=== PATIENT | male | born 1995 | race Two or more races ===

== ENCOUNTER 2016-12-17 23:46 | Emergency (ER) | payer OTHER ==
[2016-12-17] MEDS ORDERED: ACETAMINOPHEN 500 MG TAB PO ONE (23:55)
[2016-12-17] MEDS ORDERED: IBUPROFEN 600 MG TAB PO ONE (23:56)
--- NOTE | 2016-12-18 | CPEKG ---
Heart Rate: 156 RR Interval: 385 P-R Interval: 180 QRSD Interval: 80 QT Interval: 232 QTC Interval: 374 P [place]: 69 QRS [place]: 41 T Wave [place]: -83 EKG Severity - ABNORMAL ECG - EKG Impression: SINUS TACHYCARDIA EKG Impression: PROBABLE LEFT ATRIAL ABNORMALITY EKG Impression: REPOL ABNRM SUGGESTS ISCHEMIA, DIFFUSE LEADS Electronically Signed By: Alec Vera 18-Dec-2016 02:23:29
[2016-12-18] MEDS ORDERED: NS 1,000 ML IV ONE ×2 (00:02→01:04)
[2016-12-18 00:51] VITALS: RESP 16
[2016-12-18 01:00] LABS: COLOR YELLOW; LEUKOCYTE ESTERASE,URINE NEGATIVE (NEGATIVE); NITRITE,URINE NEGATIVE (NEGATIVE)
[2016-12-18 01:01] LABS: % IMMATURE GRANULYOCYTES 0.6 % (0.0-1.1); ABSOLUTE IMMATURE GRANULOCYTES 0.05 10^3/uL (0.00-0.10); ADD DIFF? NO; ADD MORPH? NO; ADD SCAN? NO; ANION GAP 13 mEq/L (8-16); ATYPICAL LYMPHOCYTE FLAG 10 (0-99); CALCIUM 10.1 mg/dL (8.5-10.4); CARBON DIOXIDE 24 mEq/l (22-31); CHLORIDE 103 mEq/L (97-110); CREATININE 1.1 mg/dL (0.7-1.3); FRAGMENT RBC FLAG 0 (0-99); GLOMERULAR FILTRATION RATE > 60; GLUCOSE 101 mg/dL (70-100); HEMATOCRIT 46.3 % (40.0-51.0); HEMOGLOBIN 15.6 g/dL (13.7-17.5); LEFT SHIFT FLG 10 (0-99); LIPEMIA HEMOLYSIS FLAG 80 (0-99); MEAN CELL HEMOGLOBIN 29.1 pg (27.9-34.1); MEAN CELL HEMOGLOBIN CONCENTR. 33.7 g/dL (32.4-36.7); MEAN CELL VOLUME 86.4 fL (81.5-99.8); MEAN PLATELET VOLUME 10.1 fL (8.7-11.7); PLATELET CLUMPS FLAG 0 (0-99); PLATELET COUNT 294 10^3/uL (150-400); RED BLOOD CELL COUNT 5.36 10^6/uL (4.40-6.38); SODIUM 140 mEq/L (134-144)
--- NOTE | 2016-12-18 01:58 | EDPHY ---
H & P Stated Complaint: tachy fever bilat flank pain Time Seen by Provider: 12/18/16 00:12 HPI/ROS: Chief complaint: Chills, myalgias HPI: 21-year-old male presenting with chills and back ache which began earlier this evening. Patient states that he has normal state of health today. Decided to go to the gym with his friend. There he did do some boxing with a punching bag. He was not sparring and did not get hit. Went home started developing some bilateral back aching. Then developed chills. Continue the chills through the course of the evening and feeling generally unwell. He does live in the dorms on campus. Does not have a headache. No nausea or vomiting or diarrhea. No cough. No abdominal pain. Did have a little bit of burning with urination when he urinated earlier. Has a history of toe was kidneys in the past was worked up extensively in [place] for proteinuria. He has since been followed by a learning coach in [place] and has had normal urine since. ROS: 10 point Review of Systems is negative except as noted in the HPI. Past medical history: Proteinuria Medications: None Allergies: Amoxicillin Physical exam: Vital signs: Heart rate 150, blood pressure is 138/73, respiratory rate is 18, oxygen saturations 93% on room air, temperature is 39 Gen: Awake, Alert, No Distress HEENT: Nose: no rhinorrhea Eyes: PERRLA, EOMI Mouth: Moist mucosa Neck: Supple, no JVD Chest: nontender, lungs clear to auscultation Heart: Tachycardic, S1, S2 normal, no murmur Abd: Soft, non-tender, no guarding Back: no CVA tenderness, no midline tenderness Ext: no edema, non-tender Skin: no rash Neuro: CN II-XII intact, Sensation grossly intact, Strength 5/5 in bilateral upper and lower extremities - Personal History Current Tetanus/Diphtheria Vaccine: Yes Current Tetanus Diphtheria and Acellular Pertussis (TDAP): Yes - Medical/Surgical History Hx Asthma: No Hx Chronic Respiratory Disease: No Hx Diabetes: No Hx Cardiac Disease: No Hx Renal Disease: No Hx Cirrhosis: No Hx Alcoholism: No Hx HIV/AIDS: No Hx Splenectomy or Spleen Trauma: No - Social History Smoking Status: Never smoked Constitutional: Initial Vital Signs Temperature (C) 39 C H 12/18/16 00:05 Heart Rate 150 H 12/18/16 00:05 Respiratory Rate 18 12/18/16 00:05 Blood Pressure 138/73 H 12/18/16 00:05 O2 Sat (%) 93 12/18/16 00:05 O2 Delivery Mode Room Air O2 (L/minute) 2 Allergies/Adverse Reactions: amoxicillin Allergy (Verified 12/18/16 00:03) Home Medications: Medication Instructions Recorded NK [No Known Home Meds] 12/18/16 Medical Decision Making - Diagnostics EKG Interpretation: Sinus tachycardia with a rate of 156, normal axis, normal intervals, no acute ST or T-wave changes. ED Course/Re-evaluation: 21-year-old with tachycardia and fever here. He has some complaints of flank pain. Will give antipyretics, IV fluids, check his urine and blood work and reassess. Patient's heart rate down to 120 after 1 L of normal saline. He is also defervescing after Tylenol and ibuprofen. Urine is clear. CBC and chemistry are normal. Will give another L fluid and reassess. 0200 patient is feeling improved. Fevers down. Heart rate down is now to 113. He is tolerating p.o.. Symptoms are consistent with acute viral syndrome. Influenza serology is negative. Symptoms consistent with a viral illness. - Data Points Laboratory Results: Laboratory Results 12/18/16 00:10 12/18/16 00:10 12/18/16 12/18/16 12/18/16 00:50 00:10 00:10 WBC RBC Hgb Hct MCV MCH MCHC RDW Plt Count MPV Neut % (Auto) Lymph % (Auto) [place] % (Auto) Eos % (Auto) Baso % (Auto) Nucleat RBC Rel Count Absolute Neuts (auto) Absolute Lymphs (auto) Absolute Monos (auto) Absolute Eos (auto) Absolute Basos (auto) Absolute Nucleated RBC Immature Gran % Immature Gran # Sodium 140 mEq/L mEq/L (134-144) Potassium 4.0 mEq/L mEq/L (3.5-5.2) Chloride 103 mEq/L mEq/L (97-110) Carbon Dioxide 24 mEq/l mEq/l (22-31) Anion Gap 13 mEq/L mEq/L (8-16) BUN 18 mg/dL mg/dL (7-23) Creatinine 1.1 mg/dL mg/dL (0.7-1.3) Estimated GFR > 60 Glucose 101 mg/dL H mg/dL (70-100) Calcium 10.1 mg/dL mg/dL (8.5-10.4) Urine Color YELLOW Urine Appearance CLEAR Urine pH 5.0 (5.0-7.5) Ur Specific [place] 1.014 (1.002-1.030) Urine Protein NEGATIVE (NEGATIVE) Urine Ketones NEGATIVE (NEGATIVE) Urine Blood NEGATIVE (NEGATIVE) Urine Nitrate NEGATIVE (NEGATIVE) Urine Bilirubin NEGATIVE (NEGATIVE) Urine Urobilinogen NEGATIVE EU EU (0.2-1.0) Ur Leukocyte Esterase NEGATIVE (NEGATIVE) Ur Culture Indicated? NOT INDICATED (NI) Urine Glucose NEGATIVE (NEGATIVE) Influenza Typ A,B (DFA) NEGATIVE FOR FLU (NEGATIVE) 12/18/16 00:10 WBC 8.85 10^3/uL 10^3/uL (3.80-9.50) RBC 5.36 10^6/uL 10^6/uL (4.40-6.38) Hgb 15.6 g/dL g/dL (13.7-17.5) Hct 46.3 % % (40.0-51.0) MCV 86.4 fL fL (81.5-99.8) MCH 29.1 pg pg (27.9-34.1) MCHC 33.7 g/dL g/dL (32.4-36.7) RDW 12.0 % % (11.5-15.2) Plt Count 294 10^3/uL 10^3/uL (150-400) MPV 10.1 fL fL (8.7-11.7) Neut % (Auto) 86.7 % H % (39.3-74.2) Lymph % (Auto) 11.4 % L % (15.0-45.0) [place] % (Auto) 0.9 % L % (4.5-13.0) Eos % (Auto) 0.2 % L % (0.6-7.6) Baso % (Auto) 0.2 % L % (0.3-1.7) Nucleat RBC Rel Count 0.0 % % (0.0-0.2) Absolute Neuts (auto) 7.67 10^3/uL H 10^3/uL (1.70-6.50) Absolute Lymphs (auto) 1.01 10^3/uL 10^3/uL (1.00-3.00) Absolute Monos (auto) 0.08 10^3/uL L 10^3/uL (0.30-0.80) Absolute Eos (auto) 0.02 10^3/uL L 10^3/uL (0.03-0.40) Absolute Basos (auto) 0.02 10^3/uL 10^3/uL (0.02-0.10) Absolute Nucleated RBC 0.00 10^3/uL 10^3/uL (0-0.01) Immature Gran % 0.6 % % (0.0-1.1) Immature Gran # 0.05 10^3/uL 10^3/uL (0.00-0.10) Sodium Potassium Chloride Carbon Dioxide Anion Gap BUN Creatinine Estimated GFR Glucose Calcium Urine Color Urine Appearance Urine pH Ur Specific [place] Urine Protein Urine Ketones Urine Blood Urine Nitrate Urine Bilirubin Urine Urobilinogen Ur Leukocyte Esterase Ur Culture Indicated? Urine Glucose Influenza Typ A,B (DFA) Medications Given: Discontinued Medications Acetaminophen (Tylenol) 1,000 mg PO EDNOW ONE Stop: 12/17/16 23:56 Last Admin: 12/17/16 23:59 Dose: 1,000 mg Sodium Chloride (Ns) 1,000 mls @ 0 mls/hr IV ONCE ONE PRN Reason: Wide Open Stop: 12/18/16 00:03 Last Admin: 12/18/16 00:02 Dose: 1,000 mls Sodium Chloride (Ns) 1,000 mls @ 0 mls/hr IV ONCE ONE PRN Reason: Wide Open Stop: 12/18/16 01:05 Last Admin: 12/18/16 01:07 Dose: 1,000 mls Ibuprofen (Motrin) 600 mg PO EDNOW ONE Stop: 12/17/16 23:57 Last Admin: 12/17/16 23:59 Dose: 600 mg Departure - Departure Disposition: Home, Routine, Self-Care Clinical Impression: Viral illness, Fever Condition: Good Instructions: Viral Syndrome (ED), Fever in Adults (ED) Additional Instructions: Alternate Tylenol and ibuprofen every 4 hours for fever, chills, aches, pains. Drink plenty of fluids. Follow up at [facility] in 2-3 days if symptoms are not improving. Referrals: NONE *PRIMARY CARE P,. [Primary Care Provider] - As per Instructions [facility] Pending Sale To [facility] [Outside] - As per Instructions
[2016-12-18 02:24] VITALS: BP 106/56; PULSE 113; TEMP 98.2; O2SAT 95
== END 2016-12-18 02:25 | disposition home or self-care (01) ==
DX: B34.9 Viral infection, unspecified (principal)

== ENCOUNTER 2017-04-15 04:01 | Emergency (ER) | payer OTHER ==
[2017-04-15] MEDS ORDERED: IBUPROFEN 200 MG TAB PO ONE (04:19)
[2017-04-15] MEDS ORDERED: ACETAMINOPHEN 500 MG TAB PO ONE (04:19)
[2017-04-15] MEDS ORDERED: NS 1,000 ML IV ONE (04:19)
[2017-04-15 04:39] LABS: % IMMATURE GRANULYOCYTES 0.4 % (0.0-1.1); ABSOLUTE IMMATURE GRANULOCYTES 0.05 10^3/uL (0.00-0.10); ADD DIFF? NO; ADD MORPH? NO; ADD SCAN? NO; ATYPICAL LYMPHOCYTE FLAG 0 (0-99); FRAGMENT RBC FLAG 0 (0-99); HEMATOCRIT 43.3 % (40.0-51.0); HEMOGLOBIN 14.7 g/dL (13.7-17.5); LEFT SHIFT FLG 0 (0-99); LIPEMIA HEMOLYSIS FLAG 90 (0-99); MEAN CELL HEMOGLOBIN 29.1 pg (27.9-34.1); MEAN CELL HEMOGLOBIN CONCENTR. 33.9 g/dL (32.4-36.7); MEAN CELL VOLUME 85.6 fL (81.5-99.8); PLATELET CLUMPS FLAG 10 (0-99); PLATELET COUNT 227 10^3/uL (150-400); RED BLOOD CELL COUNT 5.06 10^6/uL (4.40-6.38); RED CELL DISTRIBUTION WIDTH 12.5 % (11.5-15.2)
[2017-04-15 04:51] LABS: ALANINE AMINOTRANSFERASE 33 IU/L (21-72); ALBUMIN 4.7 g/dL (3.5-5.0); ALKALINE PHOSPHATASE 81 IU/L (38-126); ANION GAP 13 mEq/L (8-16); ASPARTATE AMINOTRANSFERASE 28 IU/L (17-59); BILIRUBIN,TOTAL 0.9 mg/dL (0.1-1.4); CALCIUM 9.9 mg/dL (8.5-10.4); CARBON DIOXIDE 23 mEq/l (22-31); CHLORIDE 102 mEq/L (97-110); GLOMERULAR FILTRATION RATE > 60; GLUCOSE 93 mg/dL (70-100); POTASSIUM 4.5 mEq/L (3.5-5.2); SODIUM 138 mEq/L (134-144); TOTAL PROTEIN 8.1 g/dL (6.3-8.2)
[2017-04-15 05:36] LABS: COLOR AMBER; LEUKOCYTE ESTERASE,URINE NEGATIVE (NEGATIVE); NITRITE,URINE NEGATIVE (NEGATIVE)
[2017-04-15 05:39] LABS: MUCUS TRACE /lpf (NONE-1+)
--- NOTE | 2017-04-15 05:51 | EDPHY ---
H & P Stated Complaint: pt has had fever x2 days, tylenol@1400, ibuprofen @2000 Time Seen by Provider: 04/15/17 04:17 HPI/ROS: HPI The patient presents with fever which began 2 days ago and is associated with a sore throat. His temperature has been as high as 102. He has been taking Tylenol and ibuprofen for this with minimal improvement in his symptoms. He says he is also having pain of his right flank. His throat soreness is worse when he eats or drinks, he has not had any vomiting or cough. REVIEW OF SYSTEMS Constitutional: Positive for fever Eyes: No discharge. ENT: Positive for sore throat Cardiovascular: No chest pain, no palpitations. Respiratory: No cough, no shortness of breath. Gastrointestinal: No abdominal pain, no vomiting. Genitourinary: No hematuria. Musculoskeletal: No back pain. Skin: No rashes. Neurological: No headache. 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 Soc Hx: College student PHYSICAL General Appearance: Alert, no distress Eyes: Pupils equal and round no pallor or injection ENT, Mouth: Mucous membranes moist, posterior pharynx is erythematous with exudates of left tonsil Respiratory: There are no retractions, lungs are clear to auscultation Cardiovascular: Tachycardic rate with regular rhythm Gastrointestinal: Abdomen is soft and non-tender, no masses, bowel sounds normal Neurological: A&O, moves all extremities Skin: Warm and dry, no rashes Musculoskeletal: Neck is supple non tender Extremities: symmetrical, full range of motion Psychiatric: Patient is oriented X 3, there is no agitation Source: Patient Exam Limitations: No limitations - Personal History Current Tetanus Diphtheria and Acellular Pertussis (TDAP): Yes - Medical/Surgical History Hx Asthma: No Hx Chronic Respiratory Disease: No Hx Diabetes: No Hx Cardiac Disease: No Hx Renal Disease: No Hx Cirrhosis: No Hx Alcoholism: No Hx HIV/AIDS: No Hx Splenectomy or Spleen Trauma: No Other PMH: kidney issues?/ htn? 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 On exam, he is febrile, tachycardic, though generally nontoxic- appearing. His throat is erythematous with exudates. Differential diagnosis includes strep pharyngitis, viral pharyngitis, doubt deep space neck infection such as retropharyngeal abscess given full range of motion of neck. In the emergency room, the patient was given IV fluids, Tylenol, ibuprofen with defervescence of his fever. Labs were checked and did reveal a leukocytosis. UA was negative. Rapid strep was also negative. Given high suspicion for strep based on fever, sore throat, lack of cough, anterior cervical lymphadenopathy, will treat with cephalosporin as the patient has a penicillin allergy. He will be discharged in good condition. - Data Points Laboratory Results: Laboratory Results 04/15/17 04:24 04/15/17 04:24 04/15/17 04/15/17 04/15/17 Unknown 05:05 04:24 WBC RBC Hgb Hct MCV MCH MCHC RDW Plt Count MPV Neut % (Auto) Lymph % (Auto) [place] % (Auto) Eos % (Auto) Baso % (Auto) Nucleat RBC Rel Count Absolute Neuts (auto) Absolute Lymphs (auto) Absolute Monos (auto) Absolute Eos (auto) Absolute Basos (auto) Absolute Nucleated RBC Immature Gran % Immature Gran # Sodium 138 mEq/L mEq/L (134-144) Potassium 4.5 mEq/L mEq/L (3.5-5.2) Chloride 102 mEq/L mEq/L (97-110) Carbon Dioxide 23 mEq/l mEq/l (22-31) Anion Gap 13 mEq/L mEq/L (8-16) BUN 9 mg/dL mg/dL (7-23) Creatinine 1.0 mg/dL mg/dL (0.7-1.3) Estimated GFR > 60 Glucose 93 mg/dL mg/dL (70-100) Calcium 9.9 mg/dL mg/dL (8.5-10.4) Total Bilirubin 0.9 mg/dL mg/dL (0.1-1.4) AST 28 IU/L IU/L (17-59) ALT 33 IU/L IU/L (21-72) Alkaline Phosphatase 81 IU/L IU/L (38-126) Total Protein 8.1 g/dL g/dL (6.3-8.2) Albumin 4.7 g/dL g/dL (3.5-5.0) Urine Color [place] Urine Appearance MODERATELY TURBID Urine pH 8.0 H (5.0-7.5) Ur Specific [place] 1.025 (1.002-1.030) Urine Protein 1+ H (NEGATIVE) Urine Ketones TRACE H (NEGATIVE) Urine Blood NEGATIVE (NEGATIVE) Urine Nitrate NEGATIVE (NEGATIVE) Urine Bilirubin NEGATIVE (NEGATIVE) Urine Urobilinogen 4.0 EU H EU (0.2-1.0) Ur Leukocyte Esterase NEGATIVE (NEGATIVE) Urine RBC 3-5 /hpf H /hpf (0-3) Urine WBC 1-3 /hpf /hpf (0-3) Ur Epithelial Cells TRACE /lpf /lpf (NONE-1+) Urine Mucus TRACE /lpf /lpf (NONE-1+) Urine Glucose NEGATIVE (NEGATIVE) Group A Strep Screen Group A Strep DNA Pending 04/15/17 04/15/17 04:24 04:20 WBC 13.10 10^3/uL H 10^3/uL (3.80-9.50) RBC 5.06 10^6/uL 10^6/uL (4.40-6.38) Hgb 14.7 g/dL g/dL (13.7-17.5) Hct 43.3 % % (40.0-51.0) MCV 85.6 fL fL (81.5-99.8) MCH 29.1 pg pg (27.9-34.1) MCHC 33.9 g/dL g/dL (32.4-36.7) RDW 12.5 % % (11.5-15.2) Plt Count 227 10^3/uL 10^3/uL (150-400) MPV 10.0 fL fL (8.7-11.7) Neut % (Auto) 76.6 % H % (39.3-74.2) Lymph % (Auto) 11.5 % L % (15.0-45.0) [place] % (Auto) 10.9 % % (4.5-13.0) Eos % (Auto) 0.4 % L % (0.6-7.6) Baso % (Auto) 0.2 % L % (0.3-1.7) Nucleat RBC Rel Count 0.0 % % (0.0-0.2) Absolute Neuts (auto) 10.03 10^3/uL H 10^3/uL (1.70-6.50) Absolute Lymphs (auto) 1.51 10^3/uL 10^3/uL (1.00-3.00) Absolute Monos (auto) 1.43 10^3/uL H 10^3/uL (0.30-0.80) Absolute Eos (auto) 0.05 10^3/uL 10^3/uL (0.03-0.40) Absolute Basos (auto) 0.03 10^3/uL 10^3/uL (0.02-0.10) Absolute Nucleated RBC 0.00 10^3/uL 10^3/uL (0-0.01) Immature Gran % 0.4 % % (0.0-1.1) Immature Gran # 0.05 10^3/uL 10^3/uL (0.00-0.10) Sodium Potassium Chloride Carbon Dioxide Anion Gap BUN Creatinine Estimated GFR Glucose Calcium Total Bilirubin AST ALT Alkaline Phosphatase Total Protein Albumin Urine Color Urine Appearance Urine pH Ur Specific [place] Urine Protein Urine Ketones Urine Blood Urine Nitrate Urine Bilirubin Urine Urobilinogen Ur Leukocyte Esterase Urine RBC Urine WBC Ur Epithelial Cells Urine Mucus Urine Glucose Group A Strep Screen NEGATIVE (NEGATIVE) Group A Strep DNA Medications Given: Discontinued Medications Acetaminophen (Tylenol) 1,000 mg PO EDNOW ONE Stop: 04/15/17 04:20 Last Admin: 04/15/17 04:28 Dose: 1,000 mg Sodium Chloride (Ns) 1,000 mls @ 0 mls/hr IV ONCE ONE; Wide Open PRN Reason: Protocol Stop: 04/15/17 04:20 Last Admin: 04/15/17 04:25 Dose: 1,000 mls Ibuprofen (Motrin) 400 mg PO EDNOW ONE Stop: 04/15/17 04:20 Last Admin: 04/15/17 04:28 Dose: 400 mg Departure - Departure Disposition: Home, Routine, Self-Care Clinical Impression: Strep pharyngitis Fever Qualifiers: Fever type: unspecified Qualified Code(s): R50.9 - Fever, unspecified Leukocytosis Qualifiers: Leukocytosis type: unspecified Qualified Code(s): D72.829 - Elevated white blood cell count, unspecified Condition: Good Instructions: Strep Throat (ED) Referrals: [facility] [Other] - As per Instructions Prescriptions: Cefuroxime Axetil [Cefuroxime] 250 mg PO BID #20 tablet
[2017-04-15 06:10] VITALS: BP 129/87; PULSE 98; RESP 16; TEMP 99.5; O2SAT 96
== END 2017-04-15 06:10 | disposition home or self-care (01) ==
DX: J02.0 Streptococcal pharyngitis (principal); D72.829 Elevated white blood cell count, unspecified

== ENCOUNTER 2017-04-15 19:53 | Emergency (ER) | payer OTHER ==
[2017-04-15] MEDS ORDERED: ACETAMINOPHEN 325 MG TAB PO ONE (20:40)
[2017-04-15] MEDS ORDERED: HYDROCODONE/APAP 5/325 TAB PO ONE (20:40)
[2017-04-15] MEDS ORDERED: DEXAMETHASONE 4 MG TAB PO ONE (20:43)
[2017-04-15] MEDS ORDERED: AZITHROMYCIN 250 MG TAB PO ONE (21:22)
--- NOTE | 2017-04-15 21:23 | EDPHY ---
H & P Stated Complaint: Dx'd with Strep this am, still ill despite meds Source: Patient Exam Limitations: No limitations - Personal History Current Tetanus/Diphtheria Vaccine: Yes - Medical/Surgical History Hx Asthma: No Hx Chronic Respiratory Disease: No Hx Diabetes: No Hx Cardiac Disease: No Hx Renal Disease: No Hx Cirrhosis: No Hx Alcoholism: No Hx HIV/AIDS: No Hx Splenectomy or Spleen Trauma: No Other PMH: PMHx: kidney issues?/ htn? PSHx: autolaryngology - Social History Smoking Status: Never smoked Time Seen by Provider: 04/15/17 20:20 HPI/ROS: CHIEF COMPLAINT: Sore throat, fever HISTORY OF PRESENT ILLNESS: 21-year-old male presents emergency department complaining of continued sore throat and fever. Patient was seen in the emergency department early this morning and diagnosed with strep pharyngitis. He was sent home with a prescription for cephalexin. Patient reports he is taking Tylenol and ibuprofen every 6 hours and continues with fever and sore throat. Mother at bedside reports that he usually is treated Zithromax and is requesting Zithromax for his strep throat. Patient has had 2 doses of Keflex today. He denies cough, no chest pain or shortness of breath, no wheezing or difficulty breathing. REVIEW OF SYSTEMS: A comprehensive 10 point review of systems is otherwise negative aside from elements mentioned in the history of present illness. (Nancy Payan) - Physical Exam Exam: General: Alert, nontoxic. ENT: Left TM obscured by cerumen, right Tympanic membrane clear, external auditory canal, external ear and surrounding soft tissue including over the mastoid unremarkable. Nasopharynx is not injected, there is no rhinorrhea. Oropharynx with erythema. There is exudate. Bilateral moderate tonsillar hypertrophy. No asymmetry. The uvula is midline. No elevation of tongue. There is no hoarseness. No drooling, patient has good control of their oral secretions. No trismus. No stridor. No drooling Cardiac: Tachycardic rate, regular rhythm. Respiratory: Lungs clear to auscultation bilaterally. Neurological: no meningismus. Skin: No rashes. (Nancy Payan) Constitutional: Initial Vital Signs Temperature (C) 38.5 C H 04/15/17 19:56 Heart Rate 112 H 04/15/17 19:56 Respiratory Rate 16 04/15/17 19:56 Blood Pressure 151/89 H 04/15/17 19:56 O2 Sat (%) 97 04/15/17 19:56 O2 Delivery Mode Room Air Allergies/Adverse Reactions: amoxicillin Allergy (Verified 12/18/16 00:03) Home Medications: Medication Instructions Recorded Azithromycin [Zithromax] 250 mg PO DAILY #4 tab 04/15/17 Cefuroxime Axetil [Cefuroxime] 250 mg PO BID #20 tablet 04/15/17 Medical Decision Making ED Course/Re-evaluation: Patient is given Tylenol and Decadron in the emergency department, he is given his 1st dose of azithromycin and a prescription for more. He is given return precautions for any new symptoms, worsening symptoms or concerns. (Nancy Payan) Differential Diagnosis: Diagnosis considered but not limited to strep pharyngitis, viral pharyngitis, Sudhir's angina, peritonsillar abscess, retropharyngeal abscess (Nancy Payan ) Other Provider: The patient wasevaluatedand managed by themtxlevel provider. My co- signature indicates that evelia reviewed this chart and I agree with the findings and plan of care asdocumented. I am the secondary supervising physician. (Jenifer Bustillo) - Data Points Medications Given: Discontinued Medications Acetaminophen (Tylenol) 650 mg PO EDNOW ONE Stop: 04/15/17 20:41 Last Admin: 04/15/17 21:04 Dose: 650 mg Hydrocodone Bitart/Acetaminophen ([place] 5/325) 1 tab PO EDNOW ONE Stop: 04/15/17 20:41 Last Admin: 04/15/17 21:04 Dose: 1 tab Azithromycin (Zithromax) 500 mg PO EDNOW ONE PRN Reason: Protocol Stop: 04/15/17 21:23 Last Admin: 04/15/17 21:56 Dose: 500 mg Dexamethasone (Decadron) 10 mg PO EDNOW ONE Stop: 04/15/17 20:44 Last Admin: 04/15/17 21:04 Dose: 10 mg Departure - Departure Disposition: Home, Routine, Self-Care Clinical Impression: Pharyngitis Qualifiers: Pharyngitis/tonsillitis etiology: unspecified etiology Qualified Code(s): J02.9 - Acute pharyngitis, unspecified Condition: Good Instructions: Pharyngitis (ED) Additional Instructions: Take 600 mg of ibuprofen every 8 hours, take 650 mg of Tylenol every 8 hours, alternate these every 4 hours. You may replace 1 of the Tylenol with a [place]. Drink plenty of fluids. Stop taking the cephalexin and start the Zithromax. Referrals: [facility],. [Clinic] - As per Instructions Prescriptions: Azithromycin [Zithromax] 250 mg PO DAILY #4 tab
[2017-04-15 22:00] VITALS: BP 164/85; PULSE 103; RESP 18; TEMP 99; O2SAT 93
== END 2017-04-15 22:00 | disposition home or self-care (01) ==
DX: J02.9 Acute pharyngitis, unspecified (principal)